=== PATIENT | female | born 1940 | race Caucasian/White ===

== ENCOUNTER 2020-10-07 17:28 | Inpatient (IN) | payer MEDICARE ==
[2020-10-07 18:39] LABS: #Lymphocytes 0.6 thou/uL (1.20-3.40); #Monocytes 0.7 thou/uL (0.11-0.59); #Neutrophils 7.2 thou/uL (1.40-6.50); %Eosinophils 0.1 % (0.0-10.0); %Lymphocytes 6.7 % (21.0-51.0); %Monocytes 8.4 % (0.0-10.0); %Neutrophils 84.9 % (42.0-75.0); Hemoglobin 13.4 g/dL (12.0-16.0); Mean Corpuscular Hemoglobin 30.6 pg (27.0-31.0); Mean Corpuscular Volume 92.8 fL (78.0-98.0); Mean Platelet Volume 7.5 fL (7.4-10.4); Platelet Count 166 thou/uL (130-400); RBC Distribution Width 11.8 % (11.5-14.5); Red Blood Cell (RBC) Count 4.37 mill/uL (4.20-5.40); White Blood Cell (WBC) Count 8.4 thou/uL (4.8-10.8)
[2020-10-07 18:59] LABS: Digoxin 1.03 ng/mL (0.8-2.0)
[2020-10-07 19:08] LABS: ALT (SGPT) 27 U/L (8-55); AST (SGOT) 33 U/L (5-34); Albumin 3.8 g/dL (3.4-4.8); Alkaline Phosphatase 53 U/L (40-110); Anion Gap 15 mmol/L (10-20); BUN (Urea Nitrogen) 19 mg/dL (9.8-20.1); Bilirubin, Total 1.4 mg/dL (0.2-1.2); Calc. Creatinine Clearance 0 mL/min (70-130); Calcium 9.1 mg/dL (7.8-10.44); Carbon Dioxide 35 mmol/L (23-31); Chloride 88 mmol/L (98-107); Globulin 2.8 g/dL (2.4-3.5); Glucose 160 mg/dL (83-110); Potassium 3.5 mmol/L (3.5-5.1); Protein, Total 6.6 g/dL (6.0-8.3); Sodium 134 mmol/L (136-145)
[2020-10-07 19:30] LABS: CKMB 5.3 ng/mL (0-6.6)
--- NOTE | 2020-10-07 19:50 | RAD ---
FRONTAL RADIOGRAPH CHEST: Date: 10-07-2020 Comparison: None History: Multiple falls. FINDINGS: There is marked enlargement of the cardiac silhouette. No pneumothorax is seen. There is pulmonary va scular prominence. There is pleural and parenchymal opacity in the right lung base obscuring the righ t hemidiaphragm and the right heart border with blunting of the right costophrenic angle. There is gallagher zy increased density in the left base. IMPRESSION: Prominent cardiac silhouette with findings suggesting pulmonary edema. Right basilar infectious pneum onitis or aspiration cannot be excluded. Right pleural fluid noted. Follow up imaging following treat ment advised. POS: ALVIN
--- NOTE | 2020-10-07 20:03 | CT ---
CT BRAIN: Date: 10-07-2020 PROVIDED CLINICAL HISTORY: Fall with injury FINDINGS: Evaluation is limited by patient motion. There is no evidence for mass producing intracranial hemorrh age. The ventricular system appears normal in size and morphology. There is conspicuous left frontal and left periorbital scalp swelling. There is no evidence for fracture. IMPRESSION: No evidence for intracranial hemorrhage or skull fracture with limitations due to patient motion. POS: ISI
--- NOTE | 2020-10-07 20:05 | CT ---
CT FACIAL BONES: Date: 10-07-2020 PROVIDED CLINICAL HISTORY: Pain status post injury FINDINGS: There is conspicuous left frontal scalp swelling and left periorbital soft tissue swelling. There is no evidence for fracture. The globes and other orbital contents appear normal. There is trace non-hem orrhagic fluid within the left maxillary sinus. The visualized mastoid air cells appear clear. The pa ranasal sinuses appear otherwise clear of significant opacity. IMPRESSION: No evidence for fracture. POS: ISI
[2020-10-07] MEDS ORDERED: Ondansetron PF 4 MG/2 ML Vial IVP PRN (20:47)
[2020-10-07] MEDS ORDERED: Acetaminophen 650 MG Suppository PR PRN (20:47)
[2020-10-07] MEDS ORDERED: Ondansetron ODT 4 MG TAB PO PRN (20:47)
--- NOTE | 2020-10-07 20:52 | PDOC.HHP ---
Hospitalist HPI - History of Present Illness multiple episode of falls History of Present Illness: Case of an 80y/o female with a pmhx of atrial fibrillation on elliquis, htn, and hld who comes to hospital after multiple episodes of falls. patient refers she was on her usual state of health until today when she had 3 episodes of fall due to severe weakness patient denies denies LOC, nausea, chest pain, or dyspnea. No alleviating or aggravating factors. At the ED patient had a trauma work up which was negative, but ekg did showe pulse in the 20s. for which hospitlist was called for further evaluation and management. During my interview patient was sleeping and her pulse was between high 20 to 30s, upon stimulation it increased to low 40s, patient was completely asymptomatic Hospitalist ROS - Review of Systems All other systems reviewed; all pertinent +/- noted in HPI/Subj Hospitalist History - Past Surgical History Past Surgical History: reports: Cholecystectomy - Family History Family History: reports: no pertinent history - Social History Smoking Status: Never smoker Alcohol: reports: None Drugs: reports: none - Exam General Appearance: NAD, awake alert Eye: PERRL, anicteric sclera Eye - other findings: bruise on eye ENT: no oropharyngeal lesions Neck: supple, symmetric, no JVD Heart: RRR, no murmur, no gallops Respiratory: CTAB, no wheezes, no rales Gastrointestinal: soft, non-tender, non-distended Extremities: no cyanosis, no clubbing, no edema Skin: normal turgor, no lesions, no rashes Neurological: cranial nerve grossly intact, normal sensation to touch, no weakness Musculoskeletal: normal tone, normal strength, no muscle wasting Psychiatric: normal affect, normal behavior, A&O x 3 Hospitalist Results - Labs Result Diagrams: 10/07/20 18:29 10/07/20 18:29 Lab results: WBC 8.4 thou/uL (4.8-10.8) 10/07/20 18: Hgb 13.4 g/dL (12.0-16.0) 10/07/20 18: Hct 40.6 % (36.0-47.0) 10/07/20 18: MCV 92.8 fL (78.0-98.0) 10/07/20 18: Plt Count 166 thou/uL (130-400) 10/07/20 18:29 Neutrophils % 84.9 % (42.0-75.0) H 10/07/20 18:29 Sodium 134 mmol/L (136-145) L 10/07/20 18:29 Potassium 3.5 mmol/L (3.5-5.1) 10/07/20 18:29 Chloride 88 mmol/L (98-107) L 10/07/20 18:29 Carbon Dioxide 35 mmol/L (23-31) H 10/07/20 18:29 BUN 19 mg/dL (9.8-20.1) 10/07/20 18:29 Creatinine 0.62 mg/dL (0.6-1.1) 10/07/20 18: Glucose 160 mg/dL (83-110) H 10/07/20 18:29 Calcium 9.1 mg/dL (7.8-10.44) 10/07/20 18: Total Bilirubin 1.4 mg/dL (0.2-1.2) H 10/07/20 18:29 AST 33 U/L (5-34) 10/07/20 18:29 ALT 27 U/L (8-55) 10/07/20 18:29 Alkaline Phosphatase 53 U/L (40-110) 10/07/20 18:29 CK-MB (CK-2) 5.3 ng/mL (0-6.6) 10/07/20 18:29 Troponin I 0.037 ng/mL (< 0.028) H 10/07/20 18: Serum Total Protein 6.6 g/dL (6.0-8.3) 10/07/20 18:29 Albumin 3.8 g/dL (3.4-4.8) 10/07/20 18:29 Hospitalist H&P A/P - Problem (1) Symptomatic bradycardia Code(s): R00.1 - BRADYCARDIA, UNSPECIFIED Status: Acute (2) Atrial fibrillation Code(s): I48.91 - UNSPECIFIED ATRIAL FIBRILLATION Status: Acute (3) HTN (hypertension) Code(s): I10 - ESSENTIAL (PRIMARY) HYPERTENSION Status: Acute (4) HLD (hyperlipidemia) Code(s): E78.5 - HYPERLIPIDEMIA, UNSPECIFIED Status: Acute - Plan Plan: Case of an 80y/o female with a the stated pmhx who presents due to multiple falls, patient diagnosed with bradycardia at the ED symptomatic bradycardia - ekg with bradycardic atrial fibrillation on the 20s - cardiac monitoring - will hold beta mike and digoxin - digoxin at adequate levels - 2d echo - cardiology evaluation - initial troponin at 0.03 will trend atrial fibrillation - continue elliquis, head ct negative - holding beta mike and digoxin for now htn - continue home meds hld - cotninue statin
[2020-10-07 21:45] LABS: Troponin I 0.041 ng/mL (< 0.028)
[2020-10-08 01:35] LABS: Troponin I 0.055 ng/mL (< 0.028)
[2020-10-08] MEDS ORDERED: hydrALAZINE 20 MG/ML VIAL ONE (03:48)
[2020-10-08] MEDS: hydrALAZINE 20 MG/ML VIAL SLOW IVP PRN (03:55)
[2020-10-08 06:00] LABS: ALT (SGPT) 24 U/L (8-55); AST (SGOT) 26 U/L (5-34); Albumin 3.6 g/dL (3.4-4.8); Alkaline Phosphatase 48 U/L (40-110); BUN (Urea Nitrogen) 17 mg/dL (9.8-20.1); Bilirubin, Total 1.5 mg/dL (0.2-1.2); Calc. Creatinine Clearance 0 mL/min (70-130); Calcium 9.1 mg/dL (7.8-10.44); Globulin 2.6 g/dL (2.4-3.5); Glucose 138 mg/dL (83-110); Magnesium 1.9 mg/dL (1.6-2.6); Protein, Total 6.2 g/dL (6.0-8.3)
[2020-10-08 06:04] LABS: Hemoglobin 13.1 g/dL (12.0-16.0); Lymphocytes 8 % (21-51); MDiff Complete? YES; Mean Corpuscular HGB CONC 32.9 g/dL (32.0-36.0); Mean Corpuscular Hemoglobin 30.6 pg (27.0-31.0); Mean Corpuscular Volume 92.9 fL (78.0-98.0); Mean Platelet Volume 7.6 fL (7.4-10.4); Monocytes 10 % (0-10); Neutrophil 82 % (42-75); Platelet Count 153 thou/uL (130-400); Platelet Morphology Comment Appears Adequate; RBC Distribution Width 11.7 % (11.5-14.5); RBC Morphology Normal; Red Blood Cell (RBC) Count 4.27 mill/uL (4.20-5.40); White Blood Cell (WBC) Count 7.9 thou/uL (4.8-10.8)
[2020-10-08 06:09] LABS: Anion Gap 13 mmol/L (10-20); Carbon Dioxide 35 mmol/L (23-31); Chloride 89 mmol/L (98-107); Potassium 3.2 mmol/L (3.5-5.1); Sodium 134 mmol/L (136-145)
[2020-10-08 08:52] VITALS: BMI 33.1
[2020-10-08] MEDS ORDERED: Furosemide 20 MG TAB PO SCH (11:15)
[2020-10-08] MEDS ORDERED: Potassium Chloride 20 MEQ TAB PO SCH (11:15)
--- NOTE | 2020-10-08 12:22 | CON ---
DATE OF CONSULTATION: HISTORY OF PRESENT ILLNESS: Ms. Mckenna Dempsey is an 80-year-old white female with chronic atrial fibrillation since 1988 whom I have followed since 2010. She has been treated with rate control and anticoagulation alone. She has been doing well without significant symptoms and was last seen in the office on August 27, 2020. She denied any chest pain or shortness of breath. She would have rare leg edema. Over the past 10 days, according to the , she has had increased somnolence, falling asleep all the time. She then yesterday had 3 falls. She apparently would get up and walk and then would just wake up on the floor. She was brought to the emergency room, found to have significant bradycardia. She has significant ecchymosis of the left eye and underwent head CT, which was unremarkable. PAST MEDICAL HISTORY: Nonsustained ventricular tachycardia; obesity; hypercholesterolemia; hypertension; chronic atrial fibrillation, onset in 1988. OPERATIONS: Hysterectomy, laparoscopic cholecystectomy. MEDICATIONS: 1. Eliquis 5 mg b.i.d. 2. Atorvastatin 10 daily. 3. Clonidine 0.1 mg topical q.7 days. 4. Digoxin 0.25 mg daily. 5. Hydrochlorothiazide 25 daily. 6. Lisinopril 20 b.i.d. 7. Metoprolol 150 mg daily. ALLERGIES: OXYCODONE. SOCIAL HISTORY: She does not smoke or drink. FAMILY HISTORY: Unremarkable. REVIEW OF SYSTEMS: Unremarkable except as noted above. PHYSICAL EXAMINATION: VITAL SIGNS: Blood pressure 143/89, pulse of 59. At times, she will have 2.5-second pauses and heart rates in the 30s. HEENT: PERRL. She does have significant ecchymoses around the left eye and left forehead. CHEST: Clear. CARDIAC: S1 and S2 normal without any S3, S4, or murmurs. ABDOMEN: Normal bowel sounds without tenderness or organomegaly. EXTREMITIES: Revealed 1 to 2+ pretibial edema. NEUROLOGIC: Grossly intact. SKIN: Warm and dry. IMAGING STUDIES: EKG revealed atrial fibrillation with slow ventricular response approximately 24 per minute. Echocardiogram in the office from January 2020 revealed ejection fraction of 50% to 55%, moderate right atrial enlargement, [id number] mitral regurgitation, severe tricuspid regurgitation, and mild pulmonic insufficiency. Chest x-ray revealed cardiomegaly with right pleural effusion. Mild pulmonary edema. LABORATORY DATA: CBC is unremarkable. Sodium 134, potassium 3.2, chloride 89, carbon dioxide 35, BUN 17, creatinine 0.57. BNP 1463.7. Troponin-I 0.055. TSH is normal. Liver function tests were normal. Digoxin 1.03. IMPRESSION: 1. Chronic atrial fibrillation with severe bradycardia at this time. Digoxin level was therapeutic. 2. Hypokalemia. 3. Chronic diastolic congestive heart failure with peripheral edema as well as right pleural effusion at this time. 4. Normal ejection fraction in the past. 5. History of nonsustained ventricular tachycardia. 6. Hypercholesterolemia. 7. Hypertension. 8. [id number] mitral regurgitation. PLAN: Digoxin and metoprolol will be discontinued at this time and probably the digoxin will be discontinued altogether. She also is on a clonidine patch and this also can contribute to bradycardia and that will be discontinued. The lisinopril will be resumed for control of her hypertension. Also, I will start gentle diuresis with Lasix 20 mg p.o. and she will be on supplemental potassium. Echocardiogram will be performed to reassess left ventricular function. I would hold the Eliquis for 48 hours after the fall and the significant ecchymoses in the left side of the face, although her head CT did not show any evidence of intracranial hemorrhage. Fasting lipid profile will be obtained. It is anticipated that she probably will not need a pacemaker, only adjustments of her medications. We will continue to follow the patient with you. Job ID: [id number] [facility]ITAL[facility]
[2020-10-08] MEDS ORDERED: FLU VACC QS2020-21(65YR UP)/PF 240 MCG/0.7 ML SYRINGE IM ONE (12:30)
--- NOTE | 2020-10-08 18:05 | CON ---
DATE OF CONSULTATION: 10/08/2020 HISTORY OF PRESENT ILLNESS: Ms. Dempsey is a very pleasant 80-year-old female, take care of her . I met her before. She apparently had syncope, felt to be related to bradycardia. Subsequently, she has been admitted to the ICU. She has a history of atrial fibrillation. She has no complaints at this time. PAST MEDICAL HISTORY: Remarkable for: 1. Nonsustained v tach. 2. History of obesity. 3. Lipid disorder. 4. Hypertension. 5. Chronic atrial fibrillation. 6. Status post hysterectomy. 7. Status post cholecystectomy. MEDICATIONS: Prior to admission, she is on: 1. Atorvastatin. 2. Eliquis. 3. Catapres. 4. Digoxin. 5. Hydrochlorothiazide. 6. Lisinopril. 7. Beta-mike. 8. Metoprolol. ALLERGIES: SHE REPORTS OXYCODONE ALLERGIES. SOCIAL HISTORY: She is a nonsmoker and nondrinker. FAMILY HISTORY: Negative for lung disease in early age. REVIEW OF SYSTEMS: Otherwise negative. Surprisingly, she denies face or head pain after her multiple falls. She has a Raccoon sign, worse on the right. PHYSICAL EXAMINATION: GENERAL: She is in no distress. VITAL SIGNS: Blood pressure is 193/90 this afternoon, heart rate is in 40s, respiratory rate is in 20s, oximetry is 96% to 100%. HEENT: She has bilateral periorbital ecchymoses. NECK: Supple. No lymphadenopathy. LUNGS: Clear. HEART: Regular rhythm. S1 and S2 are normal. ABDOMEN: Soft and nontender. EXTREMITIES: Without clubbing, cyanosis, or edema. LABORATORY DATA: Facial bone CT showed no fracture. Head CT showed no bleed fortunately. IMPRESSION: 1. Multiple falls, likely related to bradycardia. 2. She will continue critical care unit for now. She appears to be stable. She has had some heart rates in the 30s today, but overall the trend appears to be improving. This is a 70 min consult greater than 50% of the time was spent on the unit with coordination of care. Job ID: [id number] [facility]
--- NOTE | 2020-10-08 19:33 | PDOC.HOSPP ---
- Subjective Encounter Date: 10/08/20 Encounter Time: 01:10 Subjective: patient in bed, no chest pain or shortness of breath. bradycardia improved in rate, now in 40s from 20s earlier. patient going to attempt to ambulate to bedside commode in a short while w nursing. - Objective Vital Signs & Weight: Vital Signs (12 hours) Temp Pulse Ox 10/08/20 16:00 98.1 F 10/08/20 11:00 97.9 F 10/08/20 09:00 97.1 F L 10/08/20 08:00 97 Weight Weight 169 lb 12.095 oz Most Recent Monitor Data Heart Rate from ECG 58 NIBP 172/72 NIBP BP-Mean 105 Respiration from ECG 21 SpO2 96 I&O: 10/07/20 10/08/20 10/09/20 06:59 06:59 06:59 Intake Total 445 Output Total 400 Balance 45 Result Diagrams: 10/08/20 05:25 10/08/20 05:25 Additional Labs: labs, imaging reports, notes reviewed Radiology Reviewed by me: Yes Hospitalist ROS - Medication Medications: Active Medications Generic Name Dose Route Start Last Admin Trade Name Freq PRN Reason Stop Dose Admin Hydralazine HCl 10 mg 10/08/20 03:19 10/08/20 03:55 Hydralazine 20 Mg/Ml Vial SLOW IVP 10 mg Q6H PRN Administration SBP Greater Than 170 - Exam General Appearance: NAD, awake alert Eye: PERRL, anicteric sclera ENT: normocephalic atraumatic, no oropharyngeal lesions, moist mucosa Neck: supple, symmetric, no JVD, no thyromegaly, no lymphadenopathy, no carotid bruit Heart: no murmur, no gallops, no rubs, normal peripheral pulses Heart - other findings: bradycardic in 40s, irregular Respiratory: CTAB, no wheezes, no rales, no ronchi, normal chest expansion, no tachypnea, normal percussion Gastrointestinal: soft, non-tender, non-distended, normal bowel sounds, no palpable masses, no hepatomegaly, no splenomegaly, no bruit Extremities: no cyanosis, no clubbing, no edema Skin: normal turgor, no lesions, no rashes Neurological: cranial nerve grossly intact, normal sensation to touch, no weakness, no focal deficits, no new deficit Musculoskeletal: normal tone, normal strength, no muscle wasting Psychiatric: normal affect, normal behavior, A&O x 3 Hosp A/P (1) Atrial fibrillation Code(s): I48.91 - UNSPECIFIED ATRIAL FIBRILLATION Status: Acute (2) HLD (hyperlipidemia) Code(s): E78.5 - HYPERLIPIDEMIA, UNSPECIFIED Status: Acute (3) HTN (hypertension) Code(s): I10 - ESSENTIAL (PRIMARY) HYPERTENSION Status: Acute (4) Symptomatic bradycardia Code(s): R00.1 - BRADYCARDIA, UNSPECIFIED Status: Acute - Plan Case of an 80y/o female with a the stated pmhx who presents due to multiple falls, patient diagnosed with bradycardia at the ED symptomatic bradycardia/atrial fibrillation - in 20s on admission, now in 40s - cardiac monitoring - beta mike and digoxin and clonidine on hold, conntinue lisinopril per cardiology recommendations - digoxin at adequate levels - 2d echo - cardiology evaluation - limited ambulation with assistance to commode ok per cardiology atrial fibrillation - continue elliquis, head ct negative - holding beta mike and digoxin for now htn - continue home meds hld - cotninue statin # hypokalemia - check daily, replete prn
[2020-10-08] MEDS: Lisinopril 20 MG TAB PO SCH (20:28)
[2020-10-08] MEDS: Acetaminophen 325 MG TAB PO PRN (20:28)
[2020-10-08] MEDS: Atorvastatin Calcium 10 MG TAB PO SCH (20:28)
[2020-10-08] MEDS ORDERED: Atropine Sulfate 1 mg/10 ml Syringe ONE (23:15)
[2020-10-08] MEDS ORDERED: DOBUTamine 500 mg/250 ml 500 MG in Premix Bag 1 BAG IVPB SCH (23:30)
[2020-10-09 04:13] LABS: #Eosinphils 0.1 thou/uL (0.0-0.7); #Lymphocytes 1.1 thou/uL (1.20-3.40); #Monocytes 0.8 thou/uL (0.11-0.59); #Neutrophils 5.3 thou/uL (1.40-6.50); %Basophils 0.6 % (0.0-1.0); %Eosinophils 0.7 % (0.0-10.0); %Lymphocytes 15.2 % (21.0-51.0); %Monocytes 10.3 % (0.0-10.0); %Neutrophils 73.2 % (42.0-75.0); Hemoglobin 12.2 g/dL (12.0-16.0); Mean Corpuscular Hemoglobin 30.1 pg (27.0-31.0); Mean Corpuscular Volume 94.2 fL (78.0-98.0); Mean Platelet Volume 7.8 fL (7.4-10.4); Platelet Count 133 thou/uL (130-400); RBC Distribution Width 11.8 % (11.5-14.5); Red Blood Cell (RBC) Count 4.04 mill/uL (4.20-5.40); White Blood Cell (WBC) Count 7.3 thou/uL (4.8-10.8)
[2020-10-09 04:35] LABS: Anion Gap 14 mmol/L (10-20); BUN (Urea Nitrogen) 14 mg/dL (9.8-20.1); Calc. Creatinine Clearance 98 mL/min (70-130); Carbon Dioxide 36 mmol/L (23-31); Chloride 88 mmol/L (98-107); Cholesterol 117 mg/dl (< 200 Desired); Glucose 121 mg/dL (83-110); HDL Cholesterol 58 mg/dL (>60 Neg Risk); LDL Cholesterol, Calculated 47 mg/dL; Potassium 3.7 mmol/L (3.5-5.1); Sodium 134 mmol/L (136-145); Triglycerides 61 mg/dL (Less than 150)
[2020-10-09] MEDS ORDERED: DOBUTamine 500 mg/250 ml 500 MG in Premix Bag 1 BAG IVPB SCH (07:11)
[2020-10-09] MEDS: Furosemide 20 MG TAB PO SCH (08:50)
[2020-10-09] MEDS: Potassium Chloride 10 MEQ TAB PO SCH (08:50)
[2020-10-09] MEDS: Lisinopril 20 MG TAB PO SCH ×3 (08:53→19:52)
[2020-10-09] MEDS: Acetaminophen 325 MG TAB PO PRN ×2 (10:08→14:11)
--- NOTE | 2020-10-09 14:41 | PRG ---
DATE OF SERVICE: 10/09/2020 SUBJECTIVE: Ms. Dempsey is on dobutamine now. Heart rates in the 60s. Her hemodynamics otherwise been stable. She has had no near syncope or syncope. OBJECTIVE: LUNGS: Clear. HEART: Regular rhythm. ABDOMEN: Soft. EXTREMITIES: Without asymmetry. LABORATORY DATA: White count 7.3, hemoglobin 12.2, platelets 133. Electrolytes; sodium 134, potassium 3.7, chloride 88, bicarb 36, BUN 14, and creatinine 0.5. Echocardiogram shows ejection fraction is normal. She does have a severely dilated left atrium and has severe mitral regurgitation. IMPRESSION: 1. Status post syncope at home, but fortunately no facial fractures or intracranial injury. 2. Bradycardia. 3. Severe mitral regurgitation by echocardiogram. PLAN: Continue supportive care. Job ID: [id number]
--- NOTE | 2020-10-09 15:31 | PDOC.HOSPP ---
- Subjective Encounter Date: 10/09/20 Encounter Time: 15:31 Subjective: patient in bed, no chest pain/shortness of breath, telemetry afib rate 40-50s - Objective Vital Signs & Weight: Vital Signs (12 hours) Temp Pulse Ox 10/09/20 12:00 98.2 F 10/09/20 08:00 98 10/09/20 07:00 97.5 F L 10/09/20 04:00 98.6 F Weight Weight 169 lb 12.095 oz Most Recent Monitor Data Heart Rate from ECG 49 NIBP 113/57 NIBP BP-Mean 75 Respiration from ECG 20 SpO2 98 I&O: 10/08/20 10/09/20 10/10/20 06:59 06:59 06:59 Intake Total 928 660 Output Total 600 100 Balance 328 560 Result Diagrams: 10/09/20 03:55 10/09/20 03:55 Radiology Reviewed by me: Yes Hospitalist ROS - Review of Systems Constitutional: denies: fever, chills, weakness, malaise Respiratory: denies: cough, shortness of breath, SOB with excertion Cardiovascular: denies: chest pain, palpitations, orthopnea Gastrointestinal: denies: nausea, vomiting - Medication Medications: Active Medications Generic Name Dose Route Start Last Admin Trade Name Freq PRN Reason Stop Dose Admin Acetaminophen 650 mg 10/07/20 20:47 10/09/20 14:11 Acetaminophen 325 Mg Tab PO 650 mg Q4H PRN Administration Headache/Fever/Mild Pain (1-3) Atorvastatin Calcium 10 mg 10/08/20 21:00 10/08/20 20:28 Atorvastatin Calcium 10 Mg Tab PO 10 mg HS JESSENIA Administration Furosemide 20 mg 10/09/20 09:00 10/09/20 08:50 Furosemide 20 Mg Tab PO 20 mg DAILY JESSENIA Administration Hydralazine HCl 10 mg 10/08/20 03:19 10/08/20 03:55 Hydralazine 20 Mg/Ml Vial SLOW IVP 10 mg Q6H PRN Administration SBP Greater Than 170 Lisinopril 20 mg 10/08/20 21:00 10/09/20 10:10 Lisinopril 20 Mg Tab PO 20 mg BID JESSENIA Administration Potassium Chloride 10 meq 10/09/20 08:00 10/09/20 08:50 Potassium Chloride 10 Meq Tab PO 10 meq QAM-WM JESSENIA Administration - Exam General Appearance: NAD, awake alert Eye: PERRL, anicteric sclera ENT: normocephalic atraumatic, no oropharyngeal lesions, moist mucosa ENT - other findings: face ecchymoses Neck: supple, symmetric, no JVD, no thyromegaly, no lymphadenopathy, no carotid bruit Heart: RRR, no murmur, no gallops, no rubs, normal peripheral pulses Respiratory: CTAB, no wheezes, no rales, no ronchi, normal chest expansion, no tachypnea, normal percussion Gastrointestinal: soft, non-tender, non-distended, normal bowel sounds, no palpable masses, no hepatomegaly, no splenomegaly, no bruit Extremities: no cyanosis, no clubbing, no edema Skin: normal turgor, no lesions, no rashes Neurological: cranial nerve grossly intact, normal sensation to touch, no weakness, no focal deficits, no new deficit Musculoskeletal: normal tone, normal strength, no muscle wasting Psychiatric: normal affect, normal behavior, A&O x 3 Hosp A/P (1) Atrial fibrillation Code(s): I48.91 - UNSPECIFIED ATRIAL FIBRILLATION Status: Acute (2) HLD (hyperlipidemia) Code(s): E78.5 - HYPERLIPIDEMIA, UNSPECIFIED Status: Acute (3) HTN (hypertension) Code(s): I10 - ESSENTIAL (PRIMARY) HYPERTENSION Status: Acute (4) Symptomatic bradycardia Code(s): R00.1 - BRADYCARDIA, UNSPECIFIED Status: Acute - Plan Case of an 80y/o female with a the stated pmhx who presents due to multiple falls, patient diagnosed with bradycardia at the ED symptomatic bradycardia/atrial fibrillation - in 20s on admission, now in 40s- 50s # severe mitral regurgitation - cardiac monitoring - beta mike and digoxin and clonidine on hold, continue lisinopril per cardiology recommendations - digoxin at adequate levels - 2d echo report reviewed - cardiology evaluation underway - limited ambulation with assistance to commode allowed per cardiology atrial fibrillation - continue elliquis, head ct negative - holding beta mike and digoxin for now htn - continue home meds hld - cotninue statin # hypokalemia - check daily, replete prn
[2020-10-09] MEDS: Atorvastatin Calcium 10 MG TAB PO SCH (19:52)
[2020-10-10 03:50] LABS: #Eosinphils 0.1 thou/uL (0.0-0.7); #Lymphocytes 1.1 thou/uL (1.20-3.40); #Monocytes 0.7 thou/uL (0.11-0.59); #Neutrophils 5.3 thou/uL (1.40-6.50); %Basophils 0.3 % (0.0-1.0); %Eosinophils 0.9 % (0.0-10.0); %Lymphocytes 14.8 % (21.0-51.0); %Monocytes 10.4 % (0.0-10.0); %Neutrophils 73.7 % (42.0-75.0); Hemoglobin 12.4 g/dL (12.0-16.0); Mean Corpuscular Hemoglobin 30.3 pg (27.0-31.0); Mean Corpuscular Volume 94.7 fL (78.0-98.0); Mean Platelet Volume 7.7 fL (7.4-10.4); Platelet Count 144 thou/uL (130-400); RBC Distribution Width 11.6 % (11.5-14.5); Red Blood Cell (RBC) Count 4.11 mill/uL (4.20-5.40); White Blood Cell (WBC) Count 7.2 thou/uL (4.8-10.8)
[2020-10-10 04:08] LABS: BUN (Urea Nitrogen) 12 mg/dL (9.8-20.1); Calc. Creatinine Clearance 101 mL/min (70-130); Glucose 109 mg/dL (83-110)
[2020-10-10 04:10] LABS: Digoxin 0.71 ng/mL (0.8-2.0)
[2020-10-10 04:17] LABS: Anion Gap 15 mmol/L (10-20); Carbon Dioxide 35 mmol/L (23-31); Chloride 87 mmol/L (98-107); Potassium 3.8 mmol/L (3.5-5.1); Sodium 133 mmol/L (136-145)
[2020-10-10] MEDS: Lisinopril 20 MG TAB PO SCH ×2 (08:35→20:11)
[2020-10-10] MEDS: Potassium Chloride 10 MEQ TAB PO SCH (08:35)
[2020-10-10] MEDS: Furosemide 20 MG TAB PO SCH (08:37)
[2020-10-10 09:33] LABS: SARS-CoV-2 NAA Rapid Test Not Detected (NotDetected)
--- NOTE | 2020-10-10 16:30 | PRG ---
DATE OF SERVICE: 10/10/2020 OBJECTIVE: VITAL SIGNS: Ms. Dempsey is afebrile. Heart rates now up in the 80s to low 90s. Respiratory rates in the teens, oximetry is 92% on 1 L, blood pressure is 148/71 this afternoon. LUNGS: Clear. HEART: Regular rhythm. She is still in atrial fib and always is apparently. ABDOMEN: Soft. EXTREMITIES: Without edema. LABORATORY DATA: White count 7.2, hemoglobin 12.4, platelets 144. Sodium 133, potassium 3.8, chloride 87, bicarb 35, BUN 12, creatinine 0.52. IMPRESSION: 1. Atrial fibrillation with bradycardia, resolved. 2. Syncope with facial trauma, but no fractures and no subdural or subarachnoid bleeding or brain hemorrhage. 3. Severe mitral regurgitation on echo with normal ejection fraction. PLAN: Continue care that is supportive. She will be transferred to a monitored bed out of the ICU. Job ID: [id number]
--- NOTE | 2020-10-10 18:16 | PDOC.HOSPP ---
- Subjective Encounter Date: 10/10/20 Subjective: Patient was seen and examined in bed. She denies any cough chest pain or shortness of breath or palpitations. She was transferred out of CCU this afternoon - Objective Vital Signs & Weight: Vital Signs (12 hours) Temp Pulse Pulse Pulse Resp BP BP 10/10/20 15:49 98.2 F 80 19 10/10/20 15:07 87 76 173/79 H 10/10/20 12:00 98 F 87 20 10/10/20 11:04 78 83 163/92 H 10/10/20 08:35 140/83 10/10/20 08:00 97.9 F 10/10/20 07:02 BP BP Pulse Ox Pulse Ox Pulse Ox 10/10/20 15:49 148/71 H 92 L 10/10/20 15:07 148/71 H 92 L 10/10/20 12:00 170/83 H 92 L 10/10/20 11:04 100 93 L 10/10/20 08:35 10/10/20 08:00 100 10/10/20 07:02 100 Weight Weight 169 lb 12.095 oz Most Recent Monitor Data Heart Rate from ECG 83 NIBP 163/92 NIBP BP-Mean 115 Respiration from ECG 24 SpO2 99 I&O: 10/09/20 10/10/20 10/11/20 06:59 06:59 06:59 Intake Total 928 1262.6 320 Output Total 600 425 400 Balance 328 837.6 -80 Result Diagrams: 10/10/20 03:30 10/10/20 03:30 Hospitalist ROS - Review of Systems All other systems reviewed; all pertinent +/- noted in HPI/Subj - Medication Medications: Active Medications Generic Name Dose Route Start Last Admin Trade Name Freq PRN Reason Stop Dose Admin Acetaminophen 650 mg 10/07/20 20:47 10/09/20 14:11 Acetaminophen 325 Mg Tab PO 650 mg Q4H PRN Administration Headache/Fever/Mild Pain (1-3) Atorvastatin Calcium 10 mg 10/08/20 21:00 10/09/20 19:52 Atorvastatin Calcium 10 Mg Tab PO 10 mg HS JESSENIA Administration Furosemide 20 mg 10/09/20 09:00 10/10/20 08:37 Furosemide 20 Mg Tab PO 20 mg DAILY JESSENIA Administration Hydralazine HCl 10 mg 10/08/20 03:19 10/08/20 03:55 Hydralazine 20 Mg/Ml Vial SLOW IVP 10 mg Q6H PRN Administration SBP Greater Than 170 Lisinopril 20 mg 10/08/20 21:00 10/10/20 08:35 Lisinopril 20 Mg Tab PO 20 mg BID JESSENIA Administration Potassium Chloride 10 meq 10/09/20 08:00 10/10/20 08:35 Potassium Chloride 10 Meq Tab PO 10 meq QAM-WM JESSENIA Administration - Exam General Appearance: awake alert General - other findings: Bruise on face and arms Eye: PERRL, anicteric sclera ENT: normocephalic atraumatic, no oropharyngeal lesions Neck: supple, symmetric, no JVD Heart: RRR, no murmur, no gallops, no rubs Respiratory: CTAB, no wheezes, no rales, no ronchi Gastrointestinal: soft, non-tender, non-distended, normal bowel sounds Extremities: no cyanosis, no clubbing, 1+ LE edema Neurological: cranial nerve grossly intact, no focal deficits Psychiatric: normal affect, normal behavior, A&O x 3 Hosp A/P - Plan This is an 80-year-old With a history of atrial fibrillation on Eliquis admitted on account of multiple falls secondary to severe symptomatic bradycardia. She was admitted today CCU and subsequently transferred out this afternoon. Symptomatic bradycardia Metoprolol and digoxin held Heart rate currently in the 80s. Continue monitoring on telemetry Cardiology following. Atrial fibrillation Holding beta-blockers and digoxin Hold Eliquis on account of bleed Continue monitoring. Hypertension Continue lisinopril and as needed hydralazine Syncope Likely secondary to bradycardia Continue monitoring PT evaluation Fall No intracranial hemorrhage on CT Severe mitral regurgitation Noted on echo Appreciate cardiology input. Multiple facial bruises We will treat conservatively VT prophylaxisSCD CODE STATUSfull code
[2020-10-10] MEDS: Atorvastatin Calcium 10 MG TAB PO SCH (20:11)
[2020-10-11] MEDS: Lisinopril 20 MG TAB PO SCH ×2 (08:37→19:52)
[2020-10-11] MEDS: Potassium Chloride 10 MEQ TAB PO SCH (08:37)
[2020-10-11] MEDS: Furosemide 20 MG TAB PO SCH (08:37)
[2020-10-11] MEDS: Acetaminophen 325 MG TAB PO PRN (09:13)
--- NOTE | 2020-10-11 15:28 | PDOC.HOSPP ---
- Subjective Encounter Date: 10/11/20 Subjective: Patient was seen and examined in bed. She denied any cough chest pain shortness of breath or palpitations. No significant events overnight. - Objective Vital Signs & Weight: Vital Signs (12 hours) Temp Pulse Pulse Pulse Resp BP BP 10/11/20 12:58 97.8 F 88 14 10/11/20 09:03 84 79 177/95 H 210/101 H 10/11/20 08:08 97.8 F 81 16 10/11/20 08:00 10/11/20 04:00 97.9 F 78 20 10/11/20 03:36 BP Pulse Ox 10/11/20 12:58 198/93 H 95 10/11/20 09:03 10/11/20 08:08 176/76 H 96 10/11/20 08:00 96 10/11/20 04:00 166/77 H 97 10/11/20 03:36 96 Weight Weight 169 lb 12.095 oz Most Recent Monitor Data Heart Rate from ECG 83 NIBP 163/92 NIBP BP-Mean 115 Respiration from ECG 24 SpO2 99 I&O: 10/10/20 10/11/20 10/12/20 06:59 06:59 06:59 Intake Total 1262.6 950 Output Total 425 400 Balance 837.6 550 Result Diagrams: 10/10/20 03:30 10/10/20 03:30 EKG Reviewed by me: Yes (Telemetry showed A. fib in the 90s) Hospitalist ROS - Review of Systems All other systems reviewed; all pertinent +/- noted in HPI/Subj - Medication Medications: Active Medications Generic Name Dose Route Start Last Admin Trade Name Edu PRN Reason Stop Dose Admin Acetaminophen 650 mg 10/07/20 20:47 10/11/20 09:13 Acetaminophen 325 Mg Tab PO 650 mg Q4H PRN Administration Headache/Fever/Mild Pain (1-3) Atorvastatin Calcium 10 mg 10/08/20 21:00 10/10/20 20:11 Atorvastatin Calcium 10 Mg Tab PO 10 mg HS JESSENIA Administration Furosemide 20 mg 10/09/20 09:00 10/11/20 08:37 Furosemide 20 Mg Tab PO 20 mg DAILY JESSENIA Administration Hydralazine HCl 10 mg 10/08/20 03:19 10/08/20 03:55 Hydralazine 20 Mg/Ml Vial SLOW IVP 10 mg Q6H PRN Administration SBP Greater Than 170 Lisinopril 20 mg 10/08/20 21:00 10/11/20 08:37 Lisinopril 20 Mg Tab PO 20 mg BID JESSENIA Administration Potassium Chloride 10 meq 10/09/20 08:00 10/11/20 08:37 Potassium Chloride 10 Meq Tab PO 10 meq QAM-WM JESSENIA Administration - Exam General Appearance: awake alert Eye: PERRL, anicteric sclera ENT: normocephalic atraumatic, no oropharyngeal lesions Neck: supple, symmetric, no JVD Heart: RRR, no murmur, no gallops, no rubs Respiratory: CTAB, no wheezes, no rales, no ronchi Gastrointestinal: soft, non-tender, non-distended, normal bowel sounds Extremities: no cyanosis, no clubbing, no edema Neurological: cranial nerve grossly intact, normal sensation to touch Psychiatric: normal affect, normal behavior, A&O x 3 Hosp A/P - Plan This is an 80-year-old With a history of atrial fibrillation on Eliquis admitted on account of multiple falls secondary to severe symptomatic bradycardia. She was admitted to the CCU and subsequently transferred out a day ago. She will be reevaluated by child care associate today and possible discharge tomorrow Symptomatic bradycardia Metoprolol and digoxin held Heart rate currently in the 80s. Continue monitoring on telemetry Cardiology following-appreciate reevaluation. Atrial fibrillation Holding beta-blockers and digoxin Hold Eliquis on account of bleed Continue monitoring. Hypertension BP is on the high side Continue lisinopril/HCTZ and as needed hydralazine Continue monitoring Syncope Likely secondary to bradycardia Continue monitoring PT evaluation Fall No intracranial hemorrhage on CT Severe mitral regurgitation Noted on echo Appreciate cardiology input. Multiple facial bruises We will treat conservatively VT prophylaxisSCD CODE STATUSfull code Disposition: Rehab/penitentiary facility recommended by PT Patient would like to go homeconsider home PT at discharge
[2020-10-11] MEDS: Atorvastatin Calcium 10 MG TAB PO SCH (19:52)
[2020-10-11] MEDS: hydrALAZINE 20 MG/ML VIAL SLOW IVP PRN (23:55)
[2020-10-12] MEDS: Furosemide 20 MG TAB PO SCH (09:09)
[2020-10-12] MEDS: Potassium Chloride 10 MEQ TAB PO SCH (09:09)
[2020-10-12] MEDS: Lisinopril 20 MG TAB PO SCH ×2 (09:09→20:55)
[2020-10-12] MEDS: Hydrochlorothiazide 25 MG TAB PO SCH (09:09)
[2020-10-12] MEDS ORDERED: Furosemide 20 MG/2 ML VIAL SLOW IVP SCH (12:15)
--- NOTE | 2020-10-12 16:57 | EKG ---
Test Reason : Blood Pressure : / mmHG Vent. Rate : 024 BPM Atrial Rate : 024 BPM P-R Int : 000 ms QRS Dur : 084 ms QT Int : 466 ms P-R-T Axes : 000 107 094 degrees QTc Int : 294 ms Undetermined rhythm Rightward axis Cannot rule out Anterior infarct , age undetermined Abnormal ECG Confirmed by TEENA MIRANDA ([id number]), metropolitan editor BEENA THOMPSON ([id number]) on 10/12/2020 4:56:39 PM Referred By: Confirmed By:TEENA Shannon
--- NOTE | 2020-10-12 18:19 | PDOC.HOSPP ---
- Subjective Encounter Date: 10/12/20 Encounter Time: 11:00 Subjective: F/u: bradycardia Heart rate has been controlled. The patient denies dizziness or lightheadedness. Per nurse, her oxygen sat was 70% on room air. She ambulated to the bathroom without oxygen and upon returning, her oxygen sat was 82% on room air and improved to 94 with 2L. The patient does not wear oxygen at home. SHe denies significant cough The patient fell three times at home. She complains her left eyelid is droopy. She denies blurry vision or floaters - Objective Vital Signs & Weight: Vital Signs (12 hours) Temp Pulse Resp BP Pulse Ox 10/12/20 15:22 97.8 F 94 20 124/58 L 100 10/12/20 11:00 98.0 F 84 20 129/71 97 10/12/20 07:12 97.6 F 92 16 120/61 94 L Weight Weight 169 lb 12.095 oz Most Recent Monitor Data Heart Rate from ECG 83 NIBP 163/92 NIBP BP-Mean 115 Respiration from ECG 24 SpO2 99 I&O: 10/11/20 10/12/20 10/13/20 06:59 06:59 06:59 Intake Total 950 600 Output Total 400 Balance 550 600 Result Diagrams: 10/10/20 03:30 10/10/20 03:30 Hospitalist ROS - Review of Systems Constitutional: denies: fever, chills - Medication Medications: Active Medications Generic Name Dose Route Start Last Admin Trade Name Freq PRN Reason Stop Dose Admin Acetaminophen 650 mg 10/07/20 20:47 10/11/20 09:13 Acetaminophen 325 Mg Tab PO 650 mg Q4H PRN Administration Headache/Fever/Mild Pain (1-3) Atorvastatin Calcium 10 mg 10/08/20 21:00 10/11/20 19:52 Atorvastatin Calcium 10 Mg Tab PO 10 mg HS JESSENIA Administration Furosemide 20 mg 10/09/20 09:00 10/12/20 09:09 Furosemide 20 Mg Tab PO 20 mg DAILY JESSENIA Administration Hydralazine HCl 10 mg 10/08/20 03:19 10/11/20 23:55 Hydralazine 20 Mg/Ml Vial SLOW IVP 10 mg Q6H PRN Administration SBP Greater Than 170 Hydrochlorothiazide 25 mg 10/12/20 09:00 10/12/20 09:09 Hydrochlorothiazide 25 Mg Tab PO 25 mg DAILY JESSENIA Administration Lisinopril 20 mg 10/11/20 21:00 10/12/20 09:09 Lisinopril 20 Mg Tab PO 20 mg BID JESSENIA Administration Potassium Chloride 10 meq 10/09/20 08:00 10/12/20 09:09 Potassium Chloride 10 Meq Tab PO 10 meq QAM-WM JESSENIA Administration - Exam General Appearance: NAD, awake alert Eye: PERRL, anicteric sclera ENT: normocephalic atraumatic, no oropharyngeal lesions Neck: no JVD Heart: RRR, no murmur, no gallops, no rubs Respiratory: CTAB, no wheezes, no rales Gastrointestinal: soft, non-tender, non-distended, normal bowel sounds Extremities: 2+ LE edema Skin: normal turgor, no lesions, no rashes Skin - other findings: extensive bruising on left side of face Hosp A/P - Plan CT brain 10/07: normal Chest X ray 10/07: pulmonary edema CT facial bones 10/07: no fracture. Fluid left maxillary sinus This is an 80 year old female who presented with bradycardia. Her clonidine, metoprolol and digoxin has been held Severe bradycardia - resolved. Afib medications have been held - no indication for pacemaker currently Acute hypoxic respiratory failure from pulmonary edema possibly from severe MR - pateint is 82% on room air, does not have oxygen at home. She is on lasix 20 mg. Ordered dose of IV lasix 20 mg . Will repeat chest X ray tomorrow - severe MR, mild to moderate TR, EF 50-65% S/p fall - likely from bradycardia. Continue with therapy
[2020-10-12] MEDS: Atorvastatin Calcium 10 MG TAB PO SCH (20:55)
[2020-10-13 05:56] LABS: BUN (Urea Nitrogen) 9 mg/dL (9.8-20.1); Calc. Creatinine Clearance 108 mL/min (70-130); Calcium 8.8 mg/dL (7.8-10.44); Glucose 108 mg/dL (83-110)
[2020-10-13 06:05] LABS: Anion Gap 17 mmol/L (10-20); Carbon Dioxide 37 mmol/L (23-31); Chloride 83 mmol/L (98-107); Potassium 3.7 mmol/L (3.5-5.1); Sodium 133 mmol/L (136-145)
--- NOTE | 2020-10-13 08:35 | RAD ---
Chest one view HISTORY: Pulmonary edema. Follow-up. COMPARISON: 10/07/2020. FINDINGS: Cardiac silhouette is magnified by projection and now more obscured by bilateral pleural op acity and patchy bibasilar infiltrates. Pulmonary vascular congestion not significantly changed. Mediastinum is midline. Electronic monitoring device overlies the left hilum. No evidence of pneumothorax. IMPRESSION : Interval increase in pleural fluid. Findings of CHF are otherwise stable.
[2020-10-13] MEDS: Furosemide 20 MG TAB PO SCH (08:39)
[2020-10-13] MEDS: Hydrochlorothiazide 25 MG TAB PO SCH (08:40)
[2020-10-13] MEDS: Lisinopril 20 MG TAB PO SCH ×2 (08:40→21:34)
[2020-10-13] MEDS: Potassium Chloride 10 MEQ TAB PO SCH (08:40)
[2020-10-13] MEDS ORDERED: Furosemide 20 MG/2 ML VIAL SLOW IVP SCH ×2 (09:00→18:30)
--- NOTE | 2020-10-13 18:18 | PDOC.HOSPP ---
- Subjective Encounter Date: 10/13/20 Encounter Time: 11:00 Subjective: F/u: hypoxia, bradycardia THe patient is sitting up in bed. She is still on 2L oxygen, not been weaned down when I saw her this morning. Still has extensive edema in legs. - Objective Vital Signs & Weight: Vital Signs (12 hours) Temp Pulse Pulse Resp BP BP BP 10/13/20 15:20 97.9 F 81 16 101/52 L 10/13/20 11:53 97.9 F 91 20 124/61 10/13/20 11:26 63 126/60 10/13/20 08:40 123/64 10/13/20 07:28 97.8 F 73 20 135/67 10/13/20 07:20 Pulse Ox 10/13/20 15:20 95 10/13/20 11:53 100 10/13/20 11:26 10/13/20 08:40 10/13/20 07:28 97 10/13/20 07:20 97 Weight Weight 169 lb 12.095 oz Most Recent Monitor Data Heart Rate from ECG 83 NIBP 163/92 NIBP BP-Mean 115 Respiration from ECG 24 SpO2 99 I&O: 10/12/20 10/13/20 10/14/20 06:59 06:59 06:59 Intake Total 900 900 Output Total 300 1200 Balance 600 -300 Result Diagrams: 10/10/20 03:30 10/13/20 05:22 Hospitalist ROS - Review of Systems Constitutional: denies: fever, chills - Medication Medications: Active Medications Generic Name Dose Route Start Last Admin Trade Name Freq PRN Reason Stop Dose Admin Acetaminophen 650 mg 10/07/20 20:47 10/11/20 09:13 Acetaminophen 325 Mg Tab PO 650 mg Q4H PRN Administration Headache/Fever/Mild Pain (1-3) Atorvastatin Calcium 10 mg 10/08/20 21:00 10/12/20 20:55 Atorvastatin Calcium 10 Mg Tab PO 10 mg HS JESSENIA Administration Furosemide 20 mg 10/09/20 09:00 10/13/20 08:39 Furosemide 20 Mg Tab PO Not Given DAILY JESSENIA Hydralazine HCl 10 mg 10/08/20 03:19 10/11/20 23:55 Hydralazine 20 Mg/Ml Vial SLOW IVP 10 mg Q6H PRN Administration SBP Greater Than 170 Hydrochlorothiazide 25 mg 10/12/20 09:00 10/13/20 08:40 Hydrochlorothiazide 25 Mg Tab PO 25 mg DAILY JESSENIA Administration Lisinopril 20 mg 10/11/20 21:00 10/13/20 08:40 Lisinopril 20 Mg Tab PO 20 mg BID JESSENIA Administration Potassium Chloride 10 meq 10/09/20 08:00 10/13/20 08:40 Potassium Chloride 10 Meq Tab PO 10 meq QAM-WM JESSENIA Administration - Exam General Appearance: NAD, awake alert Eye: PERRL, anicteric sclera ENT: normocephalic atraumatic, no oropharyngeal lesions Neck: no JVD Heart: RRR, no murmur, no gallops, no rubs Respiratory: CTAB, no wheezes, no rales, no ronchi Gastrointestinal: soft, non-tender, non-distended Extremities: 2+ LE edema Skin: normal turgor, no lesions, no rashes Hosp A/P - Plan CT brain 10/07: normal Chest X ray 10/07: pulmonary edema CT facial bones 10/07: no fracture. Fluid left maxillary sinus Chest X ray 10/13: increase in pleural fluid This is an 80 year old female who presented with bradycardia. Her clonidine, metoprolol and digoxin has been held Severe bradycardia - resolved. Afib medications have been held - no indication for pacemaker currently Acute hypoxic respiratory failure from pulmonary edema possibly from severe MR - pateint is 82% on room air, does not have oxygen at home. She was started on IV lasix 20 mg 10/13. Repeat chest Xray shows increase in pleural fluid. Will continue with 20 mg IV lasix BID , cardiology is following. - she has severe MR, mild to moderate TR, EF 50-55%. Cardiology to decide regarding need for clipping? S/p fall - likely from bradycardia. Continue with therapy
[2020-10-13] MEDS: Atorvastatin Calcium 10 MG TAB PO SCH (21:34)
[2020-10-14 05:07] LABS: BUN (Urea Nitrogen) 8 mg/dL (9.8-20.1); Calc. Creatinine Clearance 110 mL/min (70-130); Calcium 8.8 mg/dL (7.8-10.44); Glucose 106 mg/dL (83-110)
[2020-10-14 05:16] LABS: Anion Gap 17 mmol/L (10-20); Carbon Dioxide 35 mmol/L (23-31); Chloride 83 mmol/L (98-107); Potassium 3.6 mmol/L (3.5-5.1); Sodium 131 mmol/L (136-145)
[2020-10-14] MEDS ORDERED: Furosemide 20 MG/2 ML VIAL SLOW IVP SCH (06:00)
[2020-10-14] MEDS: Potassium Chloride 10 MEQ TAB PO SCH ×2 (09:11→19:52)
[2020-10-14] MEDS: Lisinopril 20 MG TAB PO SCH ×2 (09:11→19:52)
[2020-10-14] MEDS: Apixaban 5 MG TAB PO SCH ×2 (09:14→19:52)
--- NOTE | 2020-10-14 11:52 | RAD ---
PORTABLE CHEST: Date: 10/14/2020 HISTORY: Pulmonary edema. COMPARISON: 10/13/2020. FINDINGS: Cardiomegaly with mild vascular engorgement. Bilateral pleural effusions, unchanged from yesterday. No significant interval change. IMPRESSION: Bilateral effusions and mild vascular engorgement, stable in appearance. POS: AGW
[2020-10-14] MEDS ORDERED: Furosemide 40 MG/4 ML VIAL SLOW IVP SCH (14:15)
--- NOTE | 2020-10-14 17:09 | PDOC.HOSPP ---
- Subjective Encounter Date: 10/14/20 Encounter Time: 09:00 Subjective: F/u: CHF The patient reports no significant shortness of breath or cough. She ambulated on room air and oxygen was 86% which improved with 2L. She was given extra 40 mg IV lasix and diuresed 700.. Repeat oxygen testing on exertion showed patient was still hypoxic to 86% but saturations improved with 1L. - Objective Vital Signs & Weight: Vital Signs (12 hours) Temp Pulse Resp BP BP BP BP 10/14/20 15:29 98.1 F 81 16 116/59 L 10/14/20 11:45 98.2 F 81 20 145/67 H 10/14/20 08:47 115/53 L 144/65 H 10/14/20 08:00 97.8 F 68 21 H 144/65 H Pulse Ox 10/14/20 15:29 97 10/14/20 11:45 94 L 10/14/20 08:47 10/14/20 08:00 98 Weight Weight 158 lb 1.6 oz Most Recent Monitor Data Heart Rate from ECG 83 NIBP 163/92 NIBP BP-Mean 115 Respiration from ECG 24 SpO2 99 I&O: 10/13/20 10/14/20 10/15/20 06:59 06:59 06:59 Intake Total 900 1140 Output Total 300 2100 Balance 600 -960 Result Diagrams: 10/10/20 03:30 10/14/20 04:21 Hospitalist ROS - Review of Systems Constitutional: denies: fever, chills - Medication Medications: Active Medications Generic Name Dose Route Start Last Admin Trade Name Freq PRN Reason Stop Dose Admin Acetaminophen 650 mg 10/07/20 20:47 10/11/20 09:13 Acetaminophen 325 Mg Tab PO 650 mg Q4H PRN Administration Headache/Fever/Mild Pain (1-3) Apixaban 5 mg 10/14/20 09:00 10/14/20 09:14 Apixaban 5 Mg Tab PO 5 mg BID JESSENIA Administration Atorvastatin Calcium 10 mg 10/08/20 21:00 10/13/20 21:34 Atorvastatin Calcium 10 Mg Tab PO 10 mg HS JESSENIA Administration Hydralazine HCl 10 mg 10/08/20 03:19 10/11/20 23:55 Hydralazine 20 Mg/Ml Vial SLOW IVP 10 mg Q6H PRN Administration SBP Greater Than 170 Lisinopril 20 mg 10/11/20 21:00 10/14/20 09:11 Lisinopril 20 Mg Tab PO 20 mg BID JESSENIA Administration Potassium Chloride 10 meq 10/14/20 09:00 10/14/20 09:11 Potassium Chloride 10 Meq Tab PO 10 meq BID JESSENIA Administration - Exam General Appearance: NAD, awake alert Eye: PERRL, anicteric sclera Eye - other findings: bruising under eye and left side of face ENT: normocephalic atraumatic, no oropharyngeal lesions Neck: no JVD Heart: RRR, no murmur, no gallops Respiratory: CTAB, no wheezes, no rales, no ronchi Gastrointestinal: soft, non-tender, non-distended Extremities: 2+ LE edema Skin: normal turgor, no lesions, no rashes Skin - other findings: venous stasis changes in lower extremities Psychiatric: A&O x 3 Hosp A/P - Plan CT brain 10/07: normal Chest X ray 10/07: pulmonary edema CT facial bones 10/07: no fracture. Fluid left maxillary sinus Chest X ray 10/13: increase in pleural fluid This is an 80 year old female who presented with bradycardia. Her clonidine, metoprolol and digoxin has been held Severe bradycardia - resolved. Afib medications have been held - no indication for pacemaker currently Acute hypoxic respiratory failure from pulmonary edema possibly from severe MR - patient has been weaned down to room air. She is till 86% while ambulating however. Increase lasix to 40 mg IV and reassess ambulatory oxygen sat tomorrow. Chest X ray 10/14 unchanged from yesterday - she has severe MR, mild to moderate TR, EF 50-55%. Cardiology has recommended outpatient workup for consideration of mitral clipping S/p fall - likely from bradycardia. Continue with therapy
[2020-10-14] MEDS: Atorvastatin Calcium 10 MG TAB PO SCH (19:52)
[2020-10-15 04:42] LABS: Hemoglobin 11.6 g/dL (12.0-16.0); Platelet Count 168 thou/uL (130-400)
[2020-10-15 04:59] LABS: Calc. Creatinine Clearance 107 mL/min (70-130)
[2020-10-15] MEDS: Potassium Chloride 10 MEQ TAB PO SCH ×2 (08:11→20:40)
[2020-10-15] MEDS: Lisinopril 20 MG TAB PO SCH ×2 (08:11→20:39)
[2020-10-15] MEDS: Apixaban 5 MG TAB PO SCH ×2 (08:11→20:40)
[2020-10-15] MEDS ORDERED: Furosemide 20 MG TAB PO SCH (08:45)
[2020-10-15 10:31] LABS: BUN (Urea Nitrogen) 7 mg/dL (9.8-20.1); Calc. Creatinine Clearance 85 mL/min (70-130); Glucose 156 mg/dL (83-110); Magnesium 1.7 mg/dL (1.6-2.6)
[2020-10-15 10:41] LABS: Anion Gap 18 mmol/L (10-20); Carbon Dioxide 33 mmol/L (23-31); Chloride 85 mmol/L (98-107); Sodium 132 mmol/L (136-145)
--- NOTE | 2020-10-15 15:32 | PDOC.HOSPP ---
- Subjective Encounter Date: 10/15/20 Encounter Time: 03:00 Subjective: F/U CHF Mrs. Dempsey denies any significant shortness of breath or cough. Her oxygen was 85% on room air with exertion. Repeat testing during exertion improved to 92% with 2 liters. - Objective Vital Signs & Weight: Vital Signs (12 hours) Temp Pulse Resp BP Pulse Ox 10/15/20 12:00 98.3 F 81 22 H 122/60 100 10/15/20 08:20 94 L 10/15/20 08:06 97.8 F 89 16 136/68 94 L 10/15/20 03:49 98.2 F 69 20 132/61 95 Weight Weight 158 lb 1.6 oz Most Recent Monitor Data Heart Rate from ECG 83 NIBP 163/92 NIBP BP-Mean 115 Respiration from ECG 24 SpO2 99 I&O: 10/14/20 10/15/20 10/16/20 06:59 06:59 06:59 Intake Total 1140 1450 Output Total 2100 3300 Balance -960 -1850 Result Diagrams: 10/15/20 04:10 10/15/20 09:57 Hospitalist ROS - Review of Systems Constitutional: denies: fever, chills Respiratory: denies: shortness of breath, sputum Gastrointestinal: denies: nausea, vomiting, diarrhea, constipation - Medication Medications: Active Medications Generic Name Dose Route Start Last Admin Trade Name Freq PRN Reason Stop Dose Admin Acetaminophen 650 mg 10/07/20 20:47 10/11/20 09:13 Acetaminophen 325 Mg Tab PO 650 mg Q4H PRN Administration Headache/Fever/Mild Pain (1-3) Apixaban 5 mg 10/14/20 09:00 10/15/20 08:11 Apixaban 5 Mg Tab PO 5 mg BID JESSENIA Administration Atorvastatin Calcium 10 mg 10/08/20 21:00 10/14/20 19:52 Atorvastatin Calcium 10 Mg Tab PO 10 mg HS JESSENIA Administration Hydralazine HCl 10 mg 10/08/20 03:19 10/11/20 23:55 Hydralazine 20 Mg/Ml Vial SLOW IVP 10 mg Q6H PRN Administration SBP Greater Than 170 Lisinopril 20 mg 10/11/20 21:00 10/15/20 08:11 Lisinopril 20 Mg Tab PO 20 mg BID JESSENIA Administration Potassium Chloride 10 meq 10/14/20 09:00 10/15/20 08:11 Potassium Chloride 10 Meq Tab PO 10 meq BID JESSENIA Administration - Exam General Appearance: NAD, awake alert Eye: PERRL, anicteric sclera Eye - other findings: Bruising on left side ENT: normocephalic atraumatic, moist mucosa Neck: no JVD Heart: RRR, no murmur, no gallops, no rubs Respiratory: CTAB, no wheezes, no rales, no ronchi Gastrointestinal: soft, non-tender Extremities: 2+ LE edema Skin: normal turgor Skin - other findings: venous stasis lower extremities Psychiatric: normal affect, normal behavior, A&O x 3 Hosp A/P - Plan CT brain 10/07: normal Chest X ray 10/07: pulmonary edema CT facial bones 10/07: no fracture. Fluid left maxillary sinus Chest X ray 10/13: increase in pleural fluid This is an 80 year old female who presented with bradycardia. Her clonidine, metoprolol and digoxin has been held Severe bradycardia - resolved. Afib medications have been held - no indication for pacemaker currently Acute hypoxic respiratory failure from pulmonary edema possibly from severe MR - On reassessment, her oxygen is 85% while ambulating. Improves to 92% while ambulating on 2L. - she has severe MR, mild to moderate TR, EF 50-55%. Cardiology has recommended outpatient workup for consideration of mitral clipping - Awaiting home oxygen S/p fall - likely from bradycardia. Continue with therapy Attending Addendum: I have seen and examined the patient and agree with assessment and plan Medical student. Patient has no complaints. She denies shortness of breath. However she still desaturates to 86% while ambulating with mild shortness of breath. This was c hecked a second time with your pulse ox as well. Home oxygen referral has been sent On exam: Patient still has 2+ lower extremity edema. She has no murmurs. Her lungs are clear. Vitals are stable Assessment and plan: 1.Acute effects respiratory failure secondary to pulmonary edema: IV Lasix has been discontinued and will transition to oral Lasix 2.Hyponatremia: Sodium is improved to 132. Consider repeat BMP in a week 3.Bradycardia: Resolved 4. S/p fall: Patient will be set up with home PT on discharge
[2020-10-15] MEDS: Atorvastatin Calcium 10 MG TAB PO SCH (23:01)
[2020-10-16 04:57] LABS: Hemoglobin 12.3 g/dL (12.0-16.0); Mean Corpuscular HGB CONC 31.7 g/dL (32.0-36.0); Mean Corpuscular Hemoglobin 29.8 pg (27.0-31.0); Mean Corpuscular Volume 93.8 fL (78.0-98.0); Mean Platelet Volume 7.4 fL (7.4-10.4); Platelet Count 182 thou/uL (130-400); RBC Distribution Width 11.7 % (11.5-14.5); Red Blood Cell (RBC) Count 4.13 mill/uL (4.20-5.40); White Blood Cell (WBC) Count 4.6 thou/uL (4.8-10.8)
[2020-10-16 05:24] LABS: BUN (Urea Nitrogen) 8 mg/dL (9.8-20.1); Calc. Creatinine Clearance 89 mL/min (70-130); Calcium 9.1 mg/dL (7.8-10.44); Glucose 105 mg/dL (83-110)
[2020-10-16 05:33] LABS: Anion Gap 14 mmol/L (10-20); Carbon Dioxide 37 mmol/L (23-31); Chloride 86 mmol/L (98-107); Potassium 3.7 mmol/L (3.5-5.1); Sodium 133 mmol/L (136-145)
[2020-10-16] MEDS ORDERED: Furosemide 40 MG TAB PO SCH (07:30)
[2020-10-16] MEDS: Potassium Chloride 10 MEQ TAB PO SCH (08:40)
[2020-10-16] MEDS: Lisinopril 20 MG TAB PO SCH (08:41)
[2020-10-16] MEDS: Apixaban 5 MG TAB PO SCH (08:41)
[2020-10-16 10:15] VITALS: BP 150/67; TEMP 98
--- NOTE | 2020-10-16 17:44 | PDOC.DS.DS ---
Provider - Provider Date of Admission: 10/07/20 20:57 Date of Discharge: 10/16/20 Admitting Provider: Geovany Thao Consultations: Cardiology (Dr. Botello) Course - Hospital Course Hospital Course: Discharge Diagnoses: 1. Severe bradycardia 2. Acute hypoxic respiratory failure from pulmonary edema versus severe MR 3. S/p fall 4. Atrial fibrillation Brief HPI: This is a 80-year-old female presented to the emergency room after falling 3 times. was unable to stand her up therefore she presented to the emergency room. When she presented to the ER her heart rate was 49. It dropped as low as 20. She was admitted for work-up for bradycardia. CT head on admission showed no bleeding. Chest x-ray showed no pulmonary edema. Hospital Course: Severe bradycardia: -Cardiology was consulted. The patient's clonidine, digoxin and mike were discontinued. Thereafter the patient's bradycardia resolved. These medications were held on discharge. Acute hypoxic respiratory failure from pulmonary edema possibly from severe Mitral regurgitation: The patient was diuresed with IV Lasix 20 mg IV twice daily for her pulmonary edema. Repeat chest x-ray on 10/14 showed mild pulmonary edema. Echocardiogram showed severe mitral regurgitation with an EF of 50 to 55 % and mild to moderate TR. Cardiology recommended outpatient work-up for consideration of mitral clipping. She does have significant edema in her legs. Her Lasix was increased to 40 mg IV due to persistent hypoxia on exertion on 10/16. However on the day of discharge, the patient still desaturated to 86% on room air on exertion. She was set up with home oxygen 2 L on exertion. She will be discharged with lasix 40 mg daily . She will continue lisinopril. Atrial fibrillation: Eliquis was initially held on admission but was restarted with no further recurrence of bleeding. S/p fall - likely from bradycardia. She ambulated with physical therapy with a walker and did well. She was set up with home PT on discharge. Pertinent Studies: CT brain 10/07: normal Chest X ray 10/07: pulmonary edema CT facial bones 10/07: no fracture. Fluid left maxillary sinus Chest X ray 10/13: increase in pleural fluid Chest Xray 10/14: mild vascular engorgement Resuscitation Status: 10/07/20 20:47 Resuscitation Status Routine Resuscitation Status: FULL: Full Resuscitation - Labs Lab Results: 10/16/20 04:24 10/16/20 04:24 Abnormal Lab Results - Last 48 hrs 10/15/20 04:10: Creatinine 0.46 L 10/15/20 04:10: Hgb 11.6 L 10/15/20 09:57: Sodium 132 L, Chloride 85 L, Carbon Dioxide 33 H, BUN 7 L, Creatinine 0.58 L 10/16/20 04:24: Sodium 133 L, Chloride 86 L, Carbon Dioxide 37 H, BUN 8 L, Creatinine 0.55 L 10/16/20 04:24: WBC 4.6 L, RBC 4.13 L, MCHC 31.7 L - Physical Exam Vitals: Vital Signs (12 hours) Temp Pulse Resp BP BP Pulse Ox 10/16/20 08:50 92 L 10/16/20 08:41 152/64 H 10/16/20 08:35 98.0 F 85 16 150/67 H 92 L Weight Weight 158 lb 1.6 oz Most Recent Monitor Data Heart Rate from ECG 83 NIBP 163/92 NIBP BP-Mean 115 Respiration from ECG 24 SpO2 99 Physical Exam: The patient was seen and examined on the day of discharge. General: patient is alert, awake, oriented times three CVS: RRR, no murmurs, rubs, gallops Lungs; CTAB abdomen: +BS, soft, nontender, nondistended Extremities: no edema Face: extensive bruising on left side of face near the eye. Vision intact Problem - Time spent with Patient (mins): 30 Plan - Discharge Medications Prescriptions: Furosemide [Lasix] 40 mg PO DAILY-AC #30 tab Potassium Chloride 20 meq PO DAILY #30 tab Home Medications: Medication Instructions Recorded Confirmed Type Apixaban [Eliquis] 5 mg PO BID 10/08/20 10/08/20 History Atorvastatin Calcium 10 mg PO DAILY 10/08/20 10/08/20 History Lisinopril 20 mg PO BID 10/08/20 10/08/20 History Furosemide [Lasix] 40 mg PO DAILY-AC #30 tab 10/16/20 Rx Potassium Chloride 20 meq PO DAILY #30 tab 10/16/20 Rx Allergies: oxycodone [From Percocet] Allergy (Severe, Verified 10/08/20 08:45) - Discharge Instructions Discharge Instructions:: You presented with a very low heart rate. This was from your metoprolol, digoxin and clonidine. Please discontinue this and hydrochlorothiazide as well. Start taking lasix 40 mg daily. You do have a very leaky mitral valve. Follow up with Dr. Botello in three weeks for evaluation of mitral clipping. You do have some fluid in your lungs. Please get a repeat chest X ray in two weeks since you have some fluid in your lungs. Repeat a BMP in one week since your sodium is slightly low at 133. - Follow up Plan Referrals: Medicare Specialist Cristobal Diaz [Other] (Home oxygen.) [facility] Cristobal [Outside] (.) Hudson Sanchez MD [Active] - (Please make sure to go to your regularly scheduled appointment with your primary care physician Dr. Sanchez.) Disposition: HOME HEALTH Quality - Care Measures CORE MEASURES:: N/A
== END 2020-10-16 12:20 | disposition home health service (06) | DRG 308 ==
LOC: ERS 17:28 → ERHOLD 20:57 → CCU 22:58 → 2SE 10-10 12:03 → 2NO 10-13 19:39
PROVIDERS: ADMIT Internal Medicine; ATTEND Internal Medicine
DX: R00.1 Bradycardia, unspecified (principal); J96.01 Acute respiratory failure with hypoxia; I50.32 Chronic diastolic (congestive) heart failure; E87.1 Hypo-osmolality and hyponatremia; I34.0 Nonrheumatic mitral (valve) insufficiency; I48.20 Chronic atrial fibrillation, unspecified; Z20.822 Contact with and (suspected) exposure to COVID-19; R29.6 Repeated falls; E78.00 Pure hypercholesterolemia, unspecified; E78.5 Hyperlipidemia, unspecified; I11.0 Hypertensive heart disease with heart failure; E87.6 Hypokalemia; Z90.49 Acquired absence of other specified parts of digestive tract; Z88.5 Allergy status to narcotic agent; Z79.899 Other long term (current) drug therapy; Z79.01 Long term (current) use of anticoagulants; Z79.02 Long term (current) use of antithrombotics/antiplatelets; Z90.710 Acquired absence of both cervix and uterus
CPT/HCPCS: 36415; 70450; 70486; 71045; 80048; 80053; 80061; 80162; 82553; 82565; 82607; 82746; 83735; 83880; 84443; 84484; 85007; 85014; 85018; 85025; 85027; 85049; 93005; 93306; J0360; J0461; J1250; J1940; U0002

== ENCOUNTER → 2020-11-19 | Day surgery (SDC) | payer MEDICARE, OTHER ==
[2020-11-15 15:21] VITALS: BMI 27.3
[~2020-11-19] MED LIST: Fentanyl 100 MCG/2 ML VIAL ONE; PROPOFOL 20 ML ONE
--- NOTE | 2020-11-19 12:04 | OP ---
DATE OF PROCEDURE: 11/19/2020 PROCEDURE PERFORMED: Transesophageal echocardiogram. INDICATION: An 80-year-old woman with mitral regurgitation. DESCRIPTION OF PROCEDURE: The patient was taken to the PACU. The patient was sedated by Anesthesiology. A transesophageal probe was placed into the distal esophagus and stomach. Echocardiographic images were obtained. The transesophageal probe was removed. FINDINGS: 1. Normal left ventricular systolic function. 2. Marked biatrial enlargement. 3. The left ventricle is not dilated. 4. Fdinpqlo-[id number] mitral regurgitation with no reversal flow in the pulmonary veins. 5. Moderate tricuspid regurgitation. 6. Atherosclerotic debris in the descending aorta. IMPRESSION: Gconcjtz-fm-qwlyte mitral regurgitation. Structurally normal mitral valve with no reversal of flow in the pulmonary veins. Job ID: [id number] [facility]
== END ==
LOC: CCL 07:15
PROVIDERS: ATTEND Internal Medicine Cardiovascular Disease
PROC: B24BZZ4 Ultrasonography of Heart with Aorta, Transesophageal (ICD-10-PCS; principal; 2020-11-19)
DX: I08.1 Rheumatic disorders of both mitral and tricuspid valves (principal); I70.0 Atherosclerosis of aorta; I48.20 Chronic atrial fibrillation, unspecified; I42.9 Cardiomyopathy, unspecified; I11.0 Hypertensive heart disease with heart failure; I50.32 Chronic diastolic (congestive) heart failure; I47.2 Ventricular tachycardia; E78.00 Pure hypercholesterolemia, unspecified; Z79.01 Long term (current) use of anticoagulants; Z79.899 Other long term (current) drug therapy; Z88.5 Allergy status to narcotic agent
CPT/HCPCS: 93312; J2704; J3010

== ENCOUNTER 2024-11-20 01:41 | Inpatient (IN) | payer MEDICARE ==
[2024-11-20] MEDS ORDERED: Insulin Regular, Human 100 UNIT/ML 10 ML VIAL SC PRN (04:51)
[2024-11-20] MEDS ORDERED: Dextrose 50% Abboject 50 ML SYRINGE SLOW IVP PRN (04:51)
[2024-11-20] MEDS ORDERED: Glucagon 1 MG/ML KIT IM PRN (04:51)
[2024-11-20] MEDS ORDERED: Ondansetron PF 4 MG/2 ML Vial IVP PRN (04:51)
[2024-11-20] MEDS ORDERED: Dextrose 5% in Water 1,000 ML IV PRN (04:51)
[2024-11-20 05:19] VITALS: BMI 26.4
[2024-11-20] MEDS ORDERED: Methocarbamol 500 MG TAB PO PRN (05:25)
[2024-11-20] MEDS ORDERED: Morphine 2 MG/ML VIAL SLOW IVP PRN (05:26)
[2024-11-20] MEDS: Acetaminophen 325 MG TAB PO PRN (09:13)
[2024-11-20] MEDS ORDERED: fentaNYL 50 mcg/mL 1 mL Vial SLOW IVP PRN (09:18)
[2024-11-20 10:34] LABS: #Basophils Less than 0.03 10x3/uL (0.0-0.2); #Eosinophils Less than 0.03 10x3/uL (0.0-0.7); %Basophils 0.1 % (0.0-1.0); %Lymphocytes 3.4 % (21.0-51.0); %Monocytes 5.8 % (0.0-10.0); %Neutrophils 89.9 % (42.0-75.0); Hematocrit 35.9 % (36.0-47.0); Hemoglobin 11.8 g/dL (12.0-16.0); Mean Corpuscular HGB CONC 32.9 g/dL (32.0-36.0); Mean Corpuscular Hemoglobin 30.2 pg (27.0-31.0); Mean Corpuscular Volume 91.8 fL (78.0-98.0); Mean Platelet Volume 9.8 fL (7.4-10.4); Platelet Count 163 10x3/uL (130-400); RBC Distribution Width 11.9 % (11.5-14.5); Red Blood Cell (RBC) Count 3.91 mill/uL (4.20-5.40)
[2024-11-20 10:55] LABS: Anion Gap 14 mmol/L (10-20); BUN (Urea Nitrogen) 36 mg/dL (9.8-20.1); Calc. Creatinine Clearance 31 mL/min (70-130); Calcium 9.2 mg/dL (7.8-10.44); Carbon Dioxide 32 mmol/L (23-31); Chloride 101 mmol/L (98-107); Estimated GFR 39; Glucose 115 mg/dL (83-110); Potassium 3.7 mmol/L (3.5-5.1); Sodium 143 mmol/L (136-145)
[2024-11-20] MEDS: traMADol HCl 50 MG TAB PO PRN (12:12)
[2024-11-21 05:15] LABS: Anion Gap 12 mmol/L (10-20); BUN (Urea Nitrogen) 30 mg/dL (9.8-20.1); Calc. Creatinine Clearance 38 mL/min (70-130); Calcium 9.5 mg/dL (7.8-10.44); Carbon Dioxide 33 mmol/L (23-31); Chloride 101 mmol/L (98-107); Estimated GFR 51; Glucose 110 mg/dL (83-110); Potassium 3.8 mmol/L (3.5-5.1); Sodium 142 mmol/L (136-145)
[2024-11-21 05:19] LABS: #Basophils 0.03 10x3/uL (0.0-0.2); %Basophils 0.2 % (0.0-1.0); %Eosinophils 0.6 % (0.0-10.0); %Lymphocytes 4.8 % (21.0-51.0); %Monocytes 7.5 % (0.0-10.0); %Neutrophils 86.3 % (42.0-75.0); Hematocrit 38.9 % (36.0-47.0); Mean Corpuscular HGB CONC 30.8 g/dL (32.0-36.0); Mean Corpuscular Hemoglobin 29.1 pg (27.0-31.0); Mean Corpuscular Volume 94.2 fL (78.0-98.0); Mean Platelet Volume 9.9 fL (7.4-10.4); Platelet Count 132 10x3/uL (130-400); RBC Distribution Width 11.9 % (11.5-14.5); Red Blood Cell (RBC) Count 4.13 mill/uL (4.20-5.40)
[2024-11-21] MEDS: Acetaminophen 325 MG TAB PO SCH (09:16)
[2024-11-21] MEDS: Atorvastatin Calcium 10 MG TAB PO SCH (09:16)
[2024-11-21] MEDS ORDERED: PHENYLEPHRINE-NS 100 MCG/ML 10 ML SYRINGE ONE (11:35)
[2024-11-21] MEDS ORDERED: Lidocaine 1% PF 5 ML VIAL ONE (11:35)
[2024-11-21] MEDS ORDERED: Ropivacaine 0.5% HCl/PF (150 MG/30 ML VIAL) ONE (11:35)
[2024-11-21] MEDS ORDERED: Ropivacaine 2% HCl/PF (20 MG/10 ML VIAL) ONE (11:35)
[2024-11-21] MEDS ORDERED: SUCCINYLCHOLINE/SOD CL,ISO/PF 200 MG/10 ML SYRINGE FS ONE (11:35)
[2024-11-21] MEDS ORDERED: ePHEDrine Sulfate 50 MG/10 ML VIAL ONE (11:35)
[2024-11-21] MEDS ORDERED: PROPOFOL 200 MG/20 ML VIAL ONE (11:35)
[2024-11-21] MEDS ORDERED: Ondansetron PF 4 MG/2 ML Vial ONE (11:35)
[2024-11-21] MEDS ORDERED: Albumin 5% 0 ML ONE (12:09)
[2024-11-21] MEDS ORDERED: Vasopressin 20 UNITS/ML VIAL ONE (12:10)
[2024-11-21] MEDS ORDERED: Ropivacaine 0.2% 550 ML 550 ML NERVE BLCK SCH (12:45)
[2024-11-21] MEDS ORDERED: Ondansetron PF 4 MG/2 ML Vial IVP PRN (12:45)
[2024-11-21] MEDS: CEFAZOLIN 2 GM in Sodium Chloride 0.9% 100 ML IVPB SCH ×2 (15:01→19:47)
[2024-11-22 08:03] LABS: #Basophils Less than 0.03 10x3/uL (0.0-0.2); #Eosinophils Less than 0.03 10x3/uL (0.0-0.7); %Basophils 0.1 % (0.0-1.0); %Lymphocytes 5.4 % (21.0-51.0); %Monocytes 5.6 % (0.0-10.0); %Neutrophils 88.4 % (42.0-75.0); Hematocrit 35.3 % (36.0-47.0); Hemoglobin 11.5 g/dL (12.0-16.0); Mean Corpuscular HGB CONC 32.6 g/dL (32.0-36.0); Mean Corpuscular Hemoglobin 29.8 pg (27.0-31.0); Mean Corpuscular Volume 91.5 fL (78.0-98.0); Mean Platelet Volume 10.2 fL (7.4-10.4); Platelet Count 157 10x3/uL (130-400); RBC Distribution Width 11.7 % (11.5-14.5); Red Blood Cell (RBC) Count 3.86 mill/uL (4.20-5.40)
[2024-11-22 08:17] LABS: Anion Gap 12 mmol/L (10-20); BUN (Urea Nitrogen) 35 mg/dL (9.8-20.1); Calc. Creatinine Clearance 30 mL/min (70-130); Calcium 9.6 mg/dL (7.8-10.44); Carbon Dioxide 34 mmol/L (23-31); Chloride 100 mmol/L (98-107); Estimated GFR 39; Glucose 138 mg/dL (83-110); Potassium 4.3 mmol/L (3.5-5.1); Sodium 142 mmol/L (136-145)
[2024-11-22] MEDS: Apixaban 2.5 MG TAB PO SCH (08:35)
[2024-11-23 05:11] LABS: #Basophils Less than 0.03 10x3/uL (0.0-0.2); %Basophils 0.1 % (0.0-1.0); %Eosinophils 0.8 % (0.0-10.0); %Lymphocytes 13.4 % (21.0-51.0); %Monocytes 7.8 % (0.0-10.0); %Neutrophils 77.5 % (42.0-75.0); Hematocrit 33.3 % (36.0-47.0); Hemoglobin 10.5 g/dL (12.0-16.0); Mean Corpuscular HGB CONC 31.5 g/dL (32.0-36.0); Mean Corpuscular Hemoglobin 29.3 pg (27.0-31.0); Mean Platelet Volume 10.1 fL (7.4-10.4); Platelet Count 154 10x3/uL (130-400); RBC Distribution Width 11.8 % (11.5-14.5); Red Blood Cell (RBC) Count 3.58 mill/uL (4.20-5.40)
[2024-11-23 05:41] LABS: Anion Gap 8 mmol/L (10-20); BUN (Urea Nitrogen) 31 mg/dL (9.8-20.1); Calc. Creatinine Clearance 43 mL/min (70-130); Calcium 9.2 mg/dL (7.8-10.44); Carbon Dioxide 34 mmol/L (23-31); Chloride 101 mmol/L (98-107); Estimated GFR 58; Glucose 100 mg/dL (83-110); Potassium 4.2 mmol/L (3.5-5.1); Sodium 139 mmol/L (136-145)
[2024-11-23] MEDS: Ketorolac Tromethamine 30 MG (1 mL) VIAL IVP PRN (06:36)
[2024-11-23] MEDS: traMADol HCl 50 MG TAB PO PRN (08:43)
[2024-11-23] MEDS: traMADol HCl 50 MG TAB PO SCH (21:17)
[2024-11-24 12:23] VITALS: BP 147/85; TEMP 97.7
== END 2024-11-24 13:05 | DRG 492 ==
LOC: 2NO 04:22 → SURG A 11-22 14:39
PROVIDERS: ADMIT Specialist; ATTEND Specialist
PROC: 0QSH04Z Reposition Left Tibia with Internal Fixation Device, Open Approach (ICD-10-PCS; principal; 2024-11-21)
PROC: 30233J1 Transfusion of Nonautologous Serum Albumin into Peripheral Vein, Percutaneous Approach (ICD-10-PCS; 2024-11-21)
PROC: 3E033XZ Introduction of Vasopressor into Peripheral Vein, Percutaneous Approach (ICD-10-PCS; 2024-11-21)
DX: S82.842A Displaced bimalleolar fracture of left lower leg, initial encounter for closed fracture (principal); S72.012A Unspecified intracapsular fracture of left femur, initial encounter for closed fracture; S82.202A Unspecified fracture of shaft of left tibia, initial encounter for closed fracture; I48.20 Chronic atrial fibrillation, unspecified; E78.00 Pure hypercholesterolemia, unspecified; I34.0 Nonrheumatic mitral (valve) insufficiency; W19.XXXA Unspecified fall, initial encounter; I48.91 Unspecified atrial fibrillation; E78.5 Hyperlipidemia, unspecified; Z88.8 Allergy status to other drugs, medicaments and biological substances; Z79.899 Other long term (current) drug therapy; S82.852A Displaced trimalleolar fracture of left lower leg, initial encounter for closed fracture; S82.402A Unspecified fracture of shaft of left fibula, initial encounter for closed fracture; Z90.710 Acquired absence of both cervix and uterus; Z90.49 Acquired absence of other specified parts of digestive tract; N18.1 Chronic kidney disease, stage 1; I12.9 Hypertensive chronic kidney disease with stage 1 through stage 4 chronic kidney disease, or unspecified chronic kidney disease; G89.18 Other acute postprocedural pain
CPT/HCPCS: 36415; 36416; 71045; 72170; 80048; 85025; 93306; A4306; C1713; J1885; J2405; J2704; J2795; P9045